=== PATIENT | female | born 1950 | race Two or more races ===

== ENCOUNTER → 2020-09-11 08:00 | Outpatient (CLI) | payer OTHER ==
[~2020-09-11] VITALS: Ht 170.2 cm; Wt 86.2 kg
[~2020-09-11 08:00] MED LIST: ATACAND32 MG PO; ATORVASTATIN CA10 MG; CANDESARTAN-HC1 EAC1; FOXAMAX; HYDROCHLOROTH12.5 MG PO; LIPIT PO; NIFEDIPINE ER60 M1; PRESGEN B LIQU473 ML; PRILOSEC OTC20 MG PO; PROCAR PO; SYNTHROID150 MCG PO; SYNTHROID50 MCG PO; TOPROL XL200 MG PO; ULTRACET PO
== END | disposition home or self-care (01) ==
LOC: LAB 08:00 → SURH 09-18 08:45 → EDSTATUS 09-18 10:45
PROVIDERS: ATTEND Surgery
DX: R59.0 Localized enlarged lymph nodes (principal); K62.5 Hemorrhage of anus and rectum; K59.09 Other constipation; C18.7 Malignant neoplasm of sigmoid colon; Z03.818 Encounter for observation for suspected exposure to other biological agents ruled out

== ENCOUNTER → 2020-09-23 | Outpatient (CLI) | payer OTHER | END | disposition home or self-care (01) | LOC: TOM 09-16 10:00 | PROVIDERS: ATTEND Surgery | DX: C18.7 Malignant neoplasm of sigmoid colon (principal); R59.0 Localized enlarged lymph nodes; K62.5 Hemorrhage of anus and rectum; K59.09 Other constipation ==

== ENCOUNTER 2020-10-20 10:15 | Inpatient (IN) | payer OTHER ==
[~2020-10-20] VITALS: Ht 167.6 cm; Wt 86.2 kg
[~2020-10-20 10:15] MED LIST changes: -ATORVASTATIN CA10 MG; -CANDESARTAN-HC1 EAC1; -NIFEDIPINE ER60 M1; -PRESGEN B LIQU473 ML; -PRILOSEC OTC20 MG PO; -ULTRACET PO
[2020-10-28] MEDS ORDERED: ATORVASTATIN CA10 MG (08:10)
[2020-10-28] MEDS ORDERED: NIFEDIPINE ER60 M1 (08:10)
[2020-10-28] MEDS ORDERED: PRESGEN B LIQU473 ML (08:11)
[2020-10-28] MEDS ORDERED: CANDESARTAN-HC1 EAC1 (08:11)
[2020-10-30] MEDS ORDERED: ULTRACET PO (13:49)
[2020-10-30] MEDS ORDERED: PRILOSEC OTC20 MG PO (13:49)
== END 2020-10-30 17:11 | disposition home or self-care (01) | DRG 334 ==
LOC: SURH 10-27 06:30 → O/R 10-27 06:30 → SURH 10-27 10:15
PROVIDERS: ADMIT Surgery; ATTEND Surgery
PROC: 07TB4ZZ Resection of Mesenteric Lymphatic, Percutaneous Endoscopic Approach (ICD-10-PCS; 2020-10-27)
PROC: 4A12X4Z Monitoring of Cardiac Electrical Activity, External Approach (ICD-10-PCS; 2020-10-27)
PROC: 0DTP4ZZ Resection of Rectum, Percutaneous Endoscopic Approach (ICD-10-PCS; principal; 2020-10-27 14:30)
DX: C18.7 Malignant neoplasm of sigmoid colon (principal); R59.0 Localized enlarged lymph nodes; Z20.822 Contact with and (suspected) exposure to COVID-19; N18.30 Chronic kidney disease, stage 3 unspecified; G47.33 Obstructive sleep apnea (adult) (pediatric); I12.9 Hypertensive chronic kidney disease with stage 1 through stage 4 chronic kidney disease, or unspecified chronic kidney disease; E03.8 Other specified hypothyroidism

== ENCOUNTER 2024-02-29 13:43 | Outpatient (CLI) | payer OTHER ==
[~2024-02-29 13:43] MED LIST changes: +ATORVASTATIN CA10 MG; +CANDESARTAN-HC1 EAC1; +NIFEDIPINE ER60 M1; +PRESGEN B LIQU473 ML; +PRILOSEC OTC20 MG PO; +ULTRACET PO
== END 2024-02-29 13:46 | disposition home or self-care (01) ==
LOC: SONOGRAMA 13:43
PROVIDERS: ATTEND Pathology Anatomic Pathology & Clinical Pathology
DX: D34 Benign neoplasm of thyroid gland (principal); E06.3 Autoimmune thyroiditis; E04.2 Nontoxic multinodular goiter